=== PATIENT | female | born 1960 | race African-American/Black ===

== ENCOUNTER 2018-12-20 09:55 | Emergency (ER) | payer OTHER ==
[2018-12-20 10:12] VITALS: PULSE 78; TEMP 98.6; BMI 29.1
[2018-12-20] MEDS ORDERED: DIPHTH,PERTUSS(ACELL),TET 0.5 ML DISP.SYRIN IM ONE ×2 (10:12→10:15)
[2018-12-20] MEDS ORDERED: IBUPROFEN 600 MG TABLET (FP) PO ONE ×2 (10:12→10:14)
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
[2018-12-20 10:30] VITALS: BP 131/91
== END 2018-12-20 10:44 | disposition home or self-care (01) ==
LOC: FER 09:55 → SUPCPDRO 09:55 → FER 10:44
PROC: 3E0234Z Introduction of Serum, Toxoid and Vaccine into Muscle, Percutaneous Approach (ICD-10-PCS; principal; 2018-12-20)
DX: S41.152A Open bite of left upper arm, initial encounter (principal); Y93.89 Activity, other specified; Y92.89 Other specified places as the place of occurrence of the external cause; Y99.0 Civilian activity done for income or pay; S51.852A Open bite of left forearm, initial encounter; Y04.1XXA Assault by human bite, initial encounter; X58.XXXA Exposure to other specified factors, initial encounter; I10 Essential (primary) hypertension
CPT/HCPCS: 90715; 99282-25

== ENCOUNTER 2024-07-16 07:38 | Emergency (ER) | payer OTHER ==
[2024-07-16 08:02] VITALS: PULSE 90; RESP 18; TEMP 98.8; BMI 29.9
[2024-07-16] MEDS ORDERED: LIDOCAINE 5% TOPICAL PATCH ONE (08:18)
[2024-07-16] MEDS ORDERED: CYCLOBENZAPRINE HCL 5 MG TABLET ONE (08:18)
[2024-07-16] MEDS ORDERED: ACETAMINOPHEN 500 MG TABLET (FP) ONE (08:18)
[2024-07-16] MEDS: ACETAMINOPHEN 325 MG TABLET (FP) PO ONE (08:28)
[2024-07-16] MEDS: LIDOCAINE 5% TOPICAL PATCH TP ONE (08:28)
[2024-07-16] MEDS: CYCLOBENZAPRINE HCL 5 MG TABLET PO ONE (08:28)
[2024-07-16 09:06] VITALS: BP 163/79
[2024-07-16] MEDS ORDERED: LIDOCAINE PATCH REMOVAL MC SCH (22:00)
== END 2024-07-16 09:16 | disposition home or self-care (01) ==
LOC: FER 07:38
DX: M54.50 Low back pain, unspecified (principal)
CPT/HCPCS: 99283-25